=== PATIENT | female | born 1960 | race Caucasian/White ===

== ENCOUNTER 2016-10-22 16:52 | Emergency (ER) | payer MEDICARE, OTHER ==
--- NOTE | 2016-10-22 17:24 | ER Document Report ---
ED Medical Screen (RME) - General Chief Complaint: Shoulder Pain Stated Complaint: RIGHT SHOULDER PAIN Notes: Right shoulder pain 24 hours. I greeted and performed a rapid initial assessment of this patient. Comprehensive ED assessment and evaluation of the patient, analysis of test results and completion of the medical decision making process will be conducted by additional ED providers. TRAVEL OUTSIDE OF THE [place] IN LAST 30 DAYS: No - Related Data Allergies/Adverse Reactions: Tetanus Vaccines and Toxoid [Tetanus] Allergy (Severe, Verified 06/02/15 11:48) Past Medical History - Past Medical History Cardiac Medical History: Reports: Hx Hypertension - MEDICATED Denies: Hx Coronary Artery Disease, Hx Heart Attack Pulmonary Medical History: Reports: Hx Asthma - medicated/no hospitalizations Denies: Hx Bronchitis, Hx COPD, Hx Pneumonia Neurological Medical History: Denies: Hx Cerebrovascular Accident, Hx Seizures Endocrine Medical History: Reports: Hx Diabetes Mellitus Type 2 - DX IN AUG 2006 GI Medical History: Denies: Hx Hepatitis, Hx Hiatal Hernia, Hx Ulcer Musculoskeltal Medical History: Denies Hx Arthritis Psychiatric Medical History: Reports: Hx Depression - DX IN AUG 2006 Infectious Medical History: Denies: Hx Hepatitis Past Surgical History: Reports: Hx Orthopedic Surgery - carpal tunnel bilateral hands. Denies: Hx Adenoidectomy, Hx Hysterectomy, Hx Mastectomy, Hx Open Heart Surgery, Hx Pacemaker - Immunizations Hx Diphtheria, Pertussis, Tetanus Vaccination: No Physical Exam - Vital signs Vitals: Temp Pulse Resp BP Pulse Ox 98.0 F 93 20 156/83 H 95 10/22/16 17:15 10/22/16 17:15 10/22/16 17:15 10/22/16 17:15 10/22/16 17:15 Course - Vital Signs Vital signs: Temp Pulse Resp BP Pulse Ox 98.0 F 93 20 156/83 H 95 10/22/16 17:15 10/22/16 17:15 10/22/16 17:15 10/22/16 17:15 10/22/16 17:15
--- NOTE | 2016-10-22 20:26 | ER Document Report ---
ED General - General Chief Complaint: Shoulder Pain Stated Complaint: RIGHT SHOULDER PAIN Notes: Patient says that she is experiencing pain that started last night in the right lateral chest and up into the right shoulder. At the time it started, patient was sitting and not doing anything strenuous. A she has not been doing anything unusual of late, although she has been working from her home doing a lot of typing since August and her workload has been increasing of late. The worst pain is located in the superior aspect of the posterior shoulder, upper scapular area. She recalls having a similar episode to this about a year ago that lasted for about a week, but it wasn't this painful. It went away with about her seeing anyone for the condition. Patient does not recall any fever. No cough or cold or chest congestion. She does have COPD, having stopped smoking in 1999. She fell 20 years ago fracturing this right shoulder. The injury did not require surgery. Patient has chronic pain and wears a fentanyl 0.25 patch. She relates to me that she has previously been in a coma twice following surgical procedures. One of these episodes lasted 8 weeks and the other one 6 weeks. She says that she was declared brain on one of those occasions. Currently has high cholesterol, high blood pressure, COPD, diabetes, depression, and kidney insufficiency.. Patient denies any specific heart disease. TRAVEL OUTSIDE OF THE [place] IN LAST 30 DAYS: No - Related Data Allergies/Adverse Reactions: Tetanus Vaccines and Toxoid [Tetanus] Allergy (Severe, Verified 06/02/15 11:48) Past Medical History - Social History Smoking Status: Former Smoker Cigarette use (# per day): No Family History: Reviewed & Not Pertinent Patient has suicidal ideation: No Patient has homicidal ideation: No - Past Medical History Cardiac Medical History: Reports: Hx Hypercholesterolemia, Hx Hypertension - MEDICATED Denies: Hx Coronary Artery Disease, Hx Heart Attack Pulmonary Medical History: Reports: Hx Asthma - medicated/no hospitalizations, Hx COPD Endocrine Medical History: Reports: Hx Diabetes Mellitus Type 1, Hx Diabetes Mellitus Type 2 - DX IN AUG 2006 Psychiatric Medical History: Reports: Hx Depression - DX IN AUG 2006 Past Surgical History: Reports: Hx Orthopedic Surgery - carpal tunnel bilateral hands - Immunizations Hx Diphtheria, Pertussis, Tetanus Vaccination: No Review of Systems - Review of Systems Notes: REVIEW OF SYSTEMS: CONSTITUTIONAL : Denies fever. EENT: Denies eye, ear, nose or mouth or throat pain or other symptoms. CARDIOVASCULAR: See history of present illness. RESPIRATORY: Denies cough, chest congestion, or shortness of breath. GASTROINTESTINAL: Denies abdominal pain or nausea, vomiting, or diarrhea. GENITOURINARY: Denies difficulty or painful urinating, urinary frequency, blood in urine. MUSCULOSKELETAL: Denies neck pain. See history of present illness regarding pain in right upper back. Denies joint pain or swelling. SKIN: Denies rash or skin lesions. NEUROLOGICAL: Denies LOC or altered mental status. Denies headache. Denies sensory loss or motor deficits. PSYCHIATRIC: Has a history of depression. ALL OTHER SYSTEMS REVIEWED AND NEGATIVE. Physical Exam - Vital signs Vitals: Temp Pulse Resp BP Pulse Ox 98.0 F 93 20 156/83 H 95 10/22/16 17:15 10/22/16 17:15 10/22/16 17:15 10/22/16 17:15 10/22/16 17:15 Interpretation: Normal - Notes Notes: PHYSICAL EXAMINATION: GENERAL: Well-appearing, in no acute distress. Does not appear to be in significant pain. HEAD: Atraumatic, normocephalic. ENT: oropharynx clear without exudates. Moist mucous membranes. NECK: Normal range of motion, supple. LUNGS: Breath sounds clear and equal bilaterally. Tender to press the right side of the chest wall laterally. Tender to press the upper right back, in the upper portion of the scapula and above. No swelling however. No skin changes. HEART: Regular rate and rhythm without murmurs. ABDOMEN: Soft, nontender. No guarding or rebound. BACK: No tenderness throughout entire back. EXTREMITIES: Normal range of motion without pain. No pain or swelling. Negative Homans. NEUROLOGICAL: Normal speech, normal gait. Normal sensory, motor, and reflex exams. Awake, alert, and oriented x3. Cranial nerves normal. PSYCH: Normal mood, normal affect. SKIN: Warm, dry, no rashes. Course - Vital Signs Vital signs: Temp Pulse Resp BP Pulse Ox 97.8 F 93 20 141/85 H 99 10/22/16 21:04 10/22/16 21:04 10/22/16 21:04 10/22/16 21:04 10/22/16 21:04 - Diagnostic Test Radiology results interpreted by me: 10/22/16 20:27 Chest x-ray and right shoulder x-ray are both negative. - EKG Interpretation by Me EKG shows normal: Sinus rhythm Rate: Normal Rhythm: NSR - At 88 Voltage: Consistant with [facility] Discharge - Discharge Clinical Impression: Muscle spasm of back Right shoulder pain Qualifiers: Chronicity: acute Qualified Code(s): M25.511 - Pain in right shoulder Condition: Stable Disposition: HOME, SELF-CARE Additional Instructions: Muscle Strain right shoulder You have strained a muscle -- torn the fibers within the muscle. This often occurs with strenuous exertion, or during an injury that suddenly stretches the muscle. The seriousness of a strain varies. Some strains heal within days, others cause problems for months. X-rays cannot show a muscle strain. X-rays are taken only if symptoms suggest that a fracture could be present. The usual treatment of a muscle strain is rest and ice packs. Sometimes, a sling, splint, or crutches may be necessary to rest the muscle. The muscle can be used again once pain subsides. Severe strains require a special exercise and stretching program to prevent permanent stiffness and disability. Your doctor will advise you if this will be necessary. Call the doctor immediately if pain or swelling becomes severe, or if numbness or discoloration develop. Your x-rays were all normal. Her EKG also showed no acute changes. Muscle Relaxers Muscle relaxing medications are usually prescribed for acute muscle spasm or injury to the neck and back. They are often combined with antiinflammatory pain medication for increased relief. You may stop the muscle relaxer when the pain and stiffness have improved. Start the medication again if spasms recur. Muscle relaxers may cause drowsiness, especially with the first dose. Do not operate machinery or drive while under the effects of the medication. Most muscle relaxers last up to 24 hours. Do not combine the medication with alcohol. FOLLOW-UP CARE: If you have been referred to a physician for follow-up care, call the physician s office for an appointment as you were instructed or within the next two days. If you experience worsening or a significant change in your symptoms, notify the physician immediately or return to the Emergency Department at any time for re-evaluation. Return if you develop new or worsening symptoms. Prescriptions: Cyclobenzaprine HCl [Flexeril 5 mg Tablet] 5 mg PO TID #15 tablet Referrals: LIA ROQUE MD [Primary Care Provider] - Follow up as needed
[2016-10-22] MEDS ORDERED: CYCLOBENZAPRINE HCL 10 MG TABLET PO ONE (20:54)
[2016-10-22 21:04] VITALS: BP 141/85
--- NOTE | 2016-10-22 22:54 | EKG REPORT ---
SEVERITY:- ABNORMAL ECG - SINUS RHYTHM PROBABLE LEFT ATRIAL ABNORMALITY LEFT VENTRICULAR HYPERTROPHY : Confirmed by: Brianna Tom MD 22-Oct-2016 22:53:36
== END 2016-10-22 21:04 | disposition home or self-care (01) ==
LOC: ER 16:52
DX: M62.830 Muscle spasm of back (principal); M25.511 Pain in right shoulder; R07.89 Other chest pain; G89.29 Other chronic pain; J44.9 Chronic obstructive pulmonary disease, unspecified; E78.00 Pure hypercholesterolemia, unspecified; I10 Essential (primary) hypertension; E11.9 Type 2 diabetes mellitus without complications; Z87.891 Personal history of nicotine dependence; Z23 Encounter for immunization
CPT/HCPCS: 93005; 99283; 71020; 73030; 93010; A9270

== ENCOUNTER → 2016-12-18 | Outpatient (CLI) | payer MEDICARE, OTHER ==
[2016-12-18 14:22] LABS: HEMOGLOBIN 12.4 g/dL (12.0-15.5); HGB HCT DIFFERENCE 0.2; MEAN CORPUSCULAR HGB CONC 33.5 g/dL (32.0-36.0); MEAN CORPUSCULAR VOLUME 86 fl (80-97); RED BLOOD COUNT 4.29 10^6/uL (3.72-5.28); RED CELL DISTRIBUTION WIDTH 13.8 % (11.5-14.0); WHITE BLOOD COUNT 11.5 10^3/uL (4.0-10.5)
[2016-12-18 14:54] LABS: ANION GAP 12 (5-19); BLOOD UREA NITROGEN 30 mg/dL (7-20); CALCIUM 9.4 mg/dL (8.4-10.2); CARBON DIOXIDE 23 mmol/L (22-30); CHLORIDE 107 mmol/L (98-107); CREATININE RESULT 2.32 mg/dL (0.52-1.25); GLUCOSE 166 mg/dL (75-110); POTASSIUM 4.9 mmol/L (3.6-5.0); SODIUM 142.4 mmol/L (137-145)
[2016-12-18 19:03] LABS: APPEARANCE,URINE SLIGHTLY-CLOUDY; BILIRUBIN,URINE NEGATIVE (NEGATIVE); GLUCOSE, URINE NEGATIVE (NEGATIVE); KETONES,URINE NEGATIVE (NEGATIVE); LEUKOCYTE ESTERASE,URINE TRACE (NEGATIVE); NITRITE,URINE NEGATIVE (NEGATIVE); PROTEIN,URINE 30 mg/dL (NEGATIVE); URINE SPECIFIC GRAVITY 1.017; UROBILINOGEN,URINE NEGATIVE mg/dL (<2.0)
[2016-12-20 11:40] LABS: CREATININE URINE 197.1 mg/dL (Not Estab.)
== END ==
LOC: OD 13:28
PROVIDERS: ATTEND Internal Medicine Nephrology
DX: I12.9 Hypertensive chronic kidney disease with stage 1 through stage 4 chronic kidney disease, or unspecified chronic kidney disease (principal); N18.4 Chronic kidney disease, stage 4 (severe); E11.9 Type 2 diabetes mellitus without complications; R80.9 Proteinuria, unspecified
CPT/HCPCS: 36415; 80048; 81001; 82570; 84156; 85027

== ENCOUNTER → 2017-05-01 | Outpatient (CLI) | payer MEDICARE, OTHER ==
[2017-05-01 18:18] LABS: HEMATOCRIT 37.3 % (36.0-47.0); HEMOGLOBIN 12.3 g/dL (12.0-15.5); HGB HCT DIFFERENCE -0.4; MEAN CORPUSCULAR HEMOGLOBIN 29.5 pg (27.0-33.4); MEAN CORPUSCULAR HGB CONC 33.1 g/dL (32.0-36.0); MEAN CORPUSCULAR VOLUME 89 fl (80-97); RED BLOOD COUNT 4.18 10^6/uL (3.72-5.28); RED CELL DISTRIBUTION WIDTH 13.1 % (11.5-14.0)
[2017-05-01 18:31] LABS: ANION GAP 10 (5-19); BLOOD UREA NITROGEN 30 mg/dL (7-20); CARBON DIOXIDE 25 mmol/L (22-30); CHLORIDE 107 mmol/L (98-107); CREATININE RESULT 2.59 mg/dL (0.52-1.25); GLUCOSE 233 mg/dL (75-110); PHOSPHORUS 2.9 mg/dL (2.5-4.5); POTASSIUM 4.9 mmol/L (3.6-5.0); SODIUM 141.9 mmol/L (137-145)
[2017-05-01 18:36] LABS: APPEARANCE,URINE SLIGHTLY-CLOUDY; BILIRUBIN,URINE NEGATIVE (NEGATIVE); GLUCOSE, URINE 50 mg/dL (NEGATIVE); KETONES,URINE NEGATIVE (NEGATIVE); LEUKOCYTE ESTERASE,URINE NEGATIVE (NEGATIVE); NITRITE,URINE NEGATIVE (NEGATIVE); PROTEIN,URINE 30 mg/dL (NEGATIVE); URINE SPECIFIC GRAVITY 1.019; UROBILINOGEN,URINE NEGATIVE mg/dL (<2.0)
[2017-05-01 18:51] LABS: URINE CREATININE 280.5 mg/dL (15-278); URINE PROTEIN 37.7 mg/dL (<12)
== END ==
LOC: OD 16:32
PROVIDERS: ATTEND Internal Medicine Nephrology
DX: E11.22 Type 2 diabetes mellitus with diabetic chronic kidney disease (principal); N18.4 Chronic kidney disease, stage 4 (severe); R80.9 Proteinuria, unspecified; E87.5 Hyperkalemia
CPT/HCPCS: 36415; 80048; 81001; 82570; 83970; 84100; 84156; 85027

== ENCOUNTER → 2017-08-31 | Outpatient (CLI) | payer MEDICARE, OTHER ==
[2017-08-31 11:39] LABS: HEMATOCRIT 36.7 % (36.0-47.0); HEMOGLOBIN 12.3 g/dL (12.0-15.5); HGB HCT DIFFERENCE 0.2; MEAN CORPUSCULAR HEMOGLOBIN 29.2 pg (27.0-33.4); MEAN CORPUSCULAR HGB CONC 33.4 g/dL (32.0-36.0); MEAN CORPUSCULAR VOLUME 88 fl (80-97); RED BLOOD COUNT 4.19 10^6/uL (3.72-5.28); RED CELL DISTRIBUTION WIDTH 13.3 % (11.5-14.0); WHITE BLOOD COUNT 10.2 10^3/uL (4.0-10.5)
[2017-08-31 11:47] LABS: APPEARANCE,URINE CLOUDY; BILIRUBIN,URINE NEGATIVE (NEGATIVE); GLUCOSE, URINE NEGATIVE (NEGATIVE); KETONES,URINE NEGATIVE (NEGATIVE); LEUKOCYTE ESTERASE,URINE SMALL (NEGATIVE); NITRITE,URINE NEGATIVE (NEGATIVE); PROTEIN,URINE 100 mg/dL (NEGATIVE); URINE SPECIFIC GRAVITY 1.025
[2017-08-31 11:56] LABS: ANION GAP 16 (5-19); BLOOD UREA NITROGEN 27 mg/dL (7-20); CALCIUM 9.2 mg/dL (8.4-10.2); CARBON DIOXIDE 20 mmol/L (22-30); CHLORIDE 108 mmol/L (98-107); CREATININE RESULT 2.38 mg/dL (0.52-1.25); GLUCOSE 175 mg/dL (75-110); PHOSPHORUS 3.2 mg/dL (2.5-4.5); POTASSIUM 4.6 mmol/L (3.6-5.0); SODIUM 144.1 mmol/L (137-145)
[2017-09-01 12:51] LABS: URINE CREATININE 89.9 mg/dL (15-278); URINE PROTEIN 20.2 mg/dL (<12)
== END ==
LOC: OD 11:04
PROVIDERS: ATTEND Internal Medicine Nephrology
DX: I12.9 Hypertensive chronic kidney disease with stage 1 through stage 4 chronic kidney disease, or unspecified chronic kidney disease (principal); N18.4 Chronic kidney disease, stage 4 (severe); E11.22 Type 2 diabetes mellitus with diabetic chronic kidney disease; E87.5 Hyperkalemia
CPT/HCPCS: 36415; 80048; 81001; 82570; 83970; 84100; 84156; 85027

== ENCOUNTER → 2018-01-14 | Outpatient (CLI) | payer MEDICARE, OTHER ==
[2018-01-14 17:30] LABS: HEMATOCRIT 37.4 % (36.0-47.0); HEMOGLOBIN 12.4 g/dL (12.0-15.5); MEAN CORPUSCULAR HEMOGLOBIN 29.1 pg (27.0-33.4); MEAN CORPUSCULAR HGB CONC 33.3 g/dL (32.0-36.0); MEAN CORPUSCULAR VOLUME 88 fl (80-97); PLATELET COUNT 197 10^3/uL (150-450); RED BLOOD COUNT 4.27 10^6/uL (3.72-5.28); RED CELL DISTRIBUTION WIDTH 13.5 % (11.5-14.0); WHITE BLOOD COUNT 7.9 10^3/uL (4.0-10.5)
[2018-01-14 17:36] LABS: APPEARANCE,URINE SLIGHTLY-CLOUDY; BILIRUBIN,URINE NEGATIVE (NEGATIVE); COLOR,URINE YELLOW; GLUCOSE, URINE >=500 mg/dL (NEGATIVE); KETONES,URINE NEGATIVE (NEGATIVE); LEUKOCYTE ESTERASE,URINE NEGATIVE (NEGATIVE); NITRITE,URINE NEGATIVE (NEGATIVE); PROTEIN,URINE 30 mg/dL (NEGATIVE); URINE SPECIFIC GRAVITY 1.016
[2018-01-14 18:01] LABS: ANION GAP 12 (5-19); BLOOD UREA NITROGEN 24 mg/dL (7-20); CALCIUM 8.9 mg/dL (8.4-10.2); CARBON DIOXIDE 25 mmol/L (22-30); CHLORIDE 104 mmol/L (98-107); GLUCOSE 244 mg/dL (75-110); PHOSPHORUS 2.9 mg/dL (2.5-4.5); POTASSIUM 4.3 mmol/L (3.6-5.0); SODIUM 141.4 mmol/L (137-145)
== END ==
LOC: OD 16:37
PROVIDERS: ATTEND Internal Medicine Nephrology
DX: I12.9 Hypertensive chronic kidney disease with stage 1 through stage 4 chronic kidney disease, or unspecified chronic kidney disease (principal); N18.4 Chronic kidney disease, stage 4 (severe); E11.9 Type 2 diabetes mellitus without complications; R80.9 Proteinuria, unspecified; D64.9 Anemia, unspecified
CPT/HCPCS: 36415; 80048; 81001; 83970; 84100; 85027

== ENCOUNTER → 2018-07-02 | Outpatient (CLI) | payer MEDICARE, OTHER ==
[2018-07-02 11:20] LABS: HEMATOCRIT 36.4 % (36.0-47.0); HEMOGLOBIN 12.5 g/dL (12.0-15.5); MEAN CORPUSCULAR HGB CONC 34.2 g/dL (32.0-36.0); MEAN CORPUSCULAR VOLUME 88 fl (80-97); RED BLOOD COUNT 4.15 10^6/uL (3.72-5.28); RED CELL DISTRIBUTION WIDTH 12.9 % (11.5-14.0); WHITE BLOOD COUNT 9.8 10^3/uL (4.0-10.5)
[2018-07-02 11:34] LABS: APPEARANCE,URINE HAZY; BILIRUBIN,URINE NEGATIVE (NEGATIVE); COLOR,URINE AMBER; GLUCOSE, URINE 500 mg/dL (NEGATIVE); KETONES,URINE NEGATIVE (NEGATIVE); LEUKOCYTE ESTERASE,URINE NEGATIVE (NEGATIVE); NITRITE,URINE NEGATIVE (NEGATIVE); PROTEIN,URINE 100 mg/dL (NEGATIVE)
[2018-07-02 11:48] LABS: URINE SPECIFIC GRAVITY 1.024
[2018-07-02 11:50] LABS: ANION GAP 12 (5-19); BLOOD UREA NITROGEN 19 mg/dL (7-20); CALCIUM 9.1 mg/dL (8.4-10.2); CARBON DIOXIDE 25 mmol/L (22-30); CHLORIDE 104 mmol/L (98-107); GLUCOSE 291 mg/dL (75-110); PHOSPHORUS 2.7 mg/dL (2.5-4.5); POTASSIUM 4.5 mmol/L (3.6-5.0); SODIUM 140.7 mmol/L (137-145)
[2018-07-02 12:00] LABS: PLATELET COUNT 225 10^3/uL (150-450)
[2018-07-02 12:01] LABS: UR PRO/CREAT RATIO RESULT 0.1 mg/mg (0.0-0.2); URINE CREATININE 314.4 mg/dL (15-278)
== END ==
LOC: OD 10:26
PROVIDERS: ATTEND Internal Medicine Nephrology
DX: I12.9 Hypertensive chronic kidney disease with stage 1 through stage 4 chronic kidney disease, or unspecified chronic kidney disease (principal); E11.22 Type 2 diabetes mellitus with diabetic chronic kidney disease; N18.4 Chronic kidney disease, stage 4 (severe); D64.9 Anemia, unspecified
CPT/HCPCS: 36415; 80048; 81001; 82570; 83970; 84100; 84156; 85027

== ENCOUNTER → 2018-10-18 | Outpatient (CLI) | payer MEDICARE, OTHER ==
[2018-10-18 17:39] LABS: HEMATOCRIT 39.2 % (36.0-47.0); HEMOGLOBIN 13.3 g/dL (12.0-15.5); MEAN CORPUSCULAR HEMOGLOBIN 29.8 pg (27.0-33.4); MEAN CORPUSCULAR HGB CONC 33.8 g/dL (32.0-36.0); MEAN CORPUSCULAR VOLUME 88 fl (80-97); PLATELET COUNT 220 10^3/uL (150-450); RED BLOOD COUNT 4.45 10^6/uL (3.72-5.28); RED CELL DISTRIBUTION WIDTH 12.9 % (11.5-14.0); WHITE BLOOD COUNT 8.5 10^3/uL (4.0-10.5)
[2018-10-18 17:50] LABS: ALANINE AMINOTRANSFERASE 20 U/L (9-52); ALBUMIN 3.9 g/dL (3.5-5.0); ALKALINE PHOSPHATASE 105 U/L (38-126); ANION GAP 8 (5-19); ASPARTATE AMINO TRANSFERASE 18 U/L (14-36); BILIRUBIN,DIRECT 0.3 mg/dL (0.0-0.4); BILIRUBIN,TOTAL 0.4 mg/dL (0.2-1.3); BLOOD UREA NITROGEN 21 mg/dL (7-20); CARBON DIOXIDE 28 mmol/L (22-30); CHLORIDE 103 mmol/L (98-107); GLUCOSE 245 mg/dL (75-110); PHOSPHORUS 2.9 mg/dL (2.5-4.5); POTASSIUM 4.8 mmol/L (3.6-5.0); SODIUM 138.5 mmol/L (137-145)
[2018-10-18 17:52] LABS: APPEARANCE,URINE CLOUDY; BILIRUBIN,URINE NEGATIVE (NEGATIVE); COLOR,URINE YELLOW; GLUCOSE, URINE >=500 mg/dL (NEGATIVE); KETONES,URINE NEGATIVE (NEGATIVE); LEUKOCYTE ESTERASE,URINE MODERATE (NEGATIVE); NITRITE,URINE NEGATIVE (NEGATIVE); PROTEIN,URINE 100 mg/dL (NEGATIVE); URINE SPECIFIC GRAVITY 1.018
== END ==
LOC: OD 16:36
PROVIDERS: ATTEND Internal Medicine Nephrology
DX: I12.9 Hypertensive chronic kidney disease with stage 1 through stage 4 chronic kidney disease, or unspecified chronic kidney disease (principal); N18.4 Chronic kidney disease, stage 4 (severe); E11.22 Type 2 diabetes mellitus with diabetic chronic kidney disease; R80.9 Proteinuria, unspecified; D64.9 Anemia, unspecified
CPT/HCPCS: 36415; 80053; 81001; 83970; 84100; 85027

== ENCOUNTER → 2018-10-25 | Outpatient (CLI) | payer MEDICARE, OTHER | LOC: OD 12:20 | PROVIDERS: ATTEND Internal Medicine Nephrology | DX: R30.0 Dysuria (principal); N18.3 Chronic kidney disease, stage 3 (moderate) ==

== ENCOUNTER → 2019-02-19 | Outpatient (CLI) | payer MEDICARE, OTHER ==
[2019-02-19 14:16] LABS: HEMATOCRIT 37.4 % (36.0-47.0); HEMOGLOBIN 12.6 g/dL (12.0-15.5); MEAN CORPUSCULAR HEMOGLOBIN 29.9 pg (27.0-33.4); MEAN CORPUSCULAR HGB CONC 33.7 g/dL (32.0-36.0); MEAN CORPUSCULAR VOLUME 89 fl (80-97); PLATELET COUNT 236 10^3/uL (150-450); RED BLOOD COUNT 4.22 10^6/uL (3.72-5.28); RED CELL DISTRIBUTION WIDTH 13.4 % (11.5-14.0); WHITE BLOOD COUNT 8.7 10^3/uL (4.0-10.5)
[2019-02-19 14:32] LABS: APPEARANCE,URINE CLEAR; BILIRUBIN,URINE NEGATIVE (NEGATIVE); COLOR,URINE YELLOW; GLUCOSE, URINE 50 mg/dL (NEGATIVE); KETONES,URINE NEGATIVE (NEGATIVE); LEUKOCYTE ESTERASE,URINE NEGATIVE (NEGATIVE); NITRITE,URINE NEGATIVE (NEGATIVE); PROTEIN,URINE NEGATIVE (NEGATIVE); URINE SPECIFIC GRAVITY 1.015; UROBILINOGEN,URINE NEGATIVE mg/dL (<2.0)
[2019-02-19 14:36] LABS: ANION GAP 10 (5-19); BLOOD UREA NITROGEN 37 mg/dL (7-20); CALCIUM 9.5 mg/dL (8.4-10.2); CARBON DIOXIDE 25 mmol/L (22-30); CHLORIDE 107 mmol/L (98-107); GLUCOSE 198 mg/dL (75-110); PHOSPHORUS 3.4 mg/dL (2.5-4.5); POTASSIUM 4.8 mmol/L (3.6-5.0); SODIUM 141.7 mmol/L (137-145)
[2019-02-19 14:58] LABS: UR PRO/CREAT RATIO RESULT 0.1 mg/mg (0.0-0.2); URINE CREATININE 119.2 mg/dL (15-278); URINE PROTEIN 16.6 mg/dL (<12)
== END ==
LOC: OD 13:44
PROVIDERS: ATTEND Internal Medicine Nephrology
DX: I12.0 Hypertensive chronic kidney disease with stage 5 chronic kidney disease or end stage renal disease (principal); N18.5 Chronic kidney disease, stage 5; E87.5 Hyperkalemia; R80.9 Proteinuria, unspecified
CPT/HCPCS: 36415; 80048; 81001; 82570; 83970; 84100; 84156; 85027

== ENCOUNTER → 2019-06-04 | Outpatient (CLI) | payer MEDICARE, OTHER ==
[2019-06-04 13:49] LABS: APPEARANCE,URINE CLEAR; BILIRUBIN,URINE NEGATIVE (NEGATIVE); COLOR,URINE YELLOW; GLUCOSE, URINE >=500 mg/dL (NEGATIVE); HEMOGLOBIN 12.5 g/dL (12.0-15.5); KETONES,URINE NEGATIVE (NEGATIVE); LEUKOCYTE ESTERASE,URINE NEGATIVE (NEGATIVE); MEAN CORPUSCULAR HEMOGLOBIN 29.7 pg (27.0-33.4); MEAN CORPUSCULAR HGB CONC 33.8 g/dL (32.0-36.0); MEAN CORPUSCULAR VOLUME 88 fl (80-97); NITRITE,URINE NEGATIVE (NEGATIVE); PLATELET COUNT 203 10^3/uL (150-450); PROTEIN,URINE 30 mg/dL (NEGATIVE); RED BLOOD COUNT 4.22 10^6/uL (3.72-5.28); RED CELL DISTRIBUTION WIDTH 12.8 % (11.5-14.0); URINE SPECIFIC GRAVITY 1.021; WHITE BLOOD COUNT 8.3 10^3/uL (4.0-10.5)
[2019-06-04 14:08] LABS: ANION GAP 13 (5-19); BLOOD UREA NITROGEN 29 mg/dL (7-20); CARBON DIOXIDE 21 mmol/L (22-30); CHLORIDE 103 mmol/L (98-107); GLUCOSE 366 mg/dL (75-110); POTASSIUM 4.8 mmol/L (3.6-5.0)
== END ==
LOC: OD 13:15
PROVIDERS: ATTEND Internal Medicine Nephrology
DX: I12.9 Hypertensive chronic kidney disease with stage 1 through stage 4 chronic kidney disease, or unspecified chronic kidney disease (principal); N18.4 Chronic kidney disease, stage 4 (severe); E11.22 Type 2 diabetes mellitus with diabetic chronic kidney disease; D64.9 Anemia, unspecified
CPT/HCPCS: 36415; 80048; 81001; 83735; 83970; 84100; 85027

== ENCOUNTER → 2019-11-13 | Outpatient (CLI) | payer MEDICARE, OTHER ==
[2019-11-13 13:02] LABS: ABSOLUTE BASOPHILS # (AUTO) 0.1 10^3/uL (0.0-0.2); ABSOLUTE EOSINOPHILS # (AUTO) 0.2 10^3/uL (0.0-0.6); ABSOLUTE LYMPHOCYTES (AUTO) 2.4 10^3/uL (0.5-4.7); ABSOLUTE MONOCYTES (AUTO) 0.6 10^3/uL (0.1-1.4); ABSOLUTE NEUT (AUTO) 4.6 10^3/uL (1.7-8.2); BASOPHILS % (AUTO) 0.9 % (0-2); EOSINOPHILS % (AUTO) 3.1 % (0-6); HEMATOCRIT 36.7 % (36.0-47.0); HEMOGLOBIN 12.3 g/dL (12.0-15.5); LYMPHOCYTES % (AUTO) 30.3 % (13-45); MEAN CORPUSCULAR HEMOGLOBIN 29.6 pg (27.0-33.4); MEAN CORPUSCULAR HGB CONC 33.4 g/dL (32.0-36.0); MEAN CORPUSCULAR VOLUME 89 fl (80-97); MONOCYTES % (AUTO) 7.3 % (3-13); PLATELET COUNT 217 10^3/uL (150-450); RED BLOOD COUNT 4.14 10^6/uL (3.72-5.28); RED CELL DISTRIBUTION WIDTH 13.8 % (11.5-14.0); SEGMENTED NEUTROPHILS % (AUTO) 58.4 % (42-78); TOTAL CELLS COUNTED % (AUTO) 100 %; WHITE BLOOD COUNT 7.9 10^3/uL (4.0-10.5)
[2019-11-13 13:25] LABS: ANION GAP 7 (5-19); BLOOD UREA NITROGEN 25 mg/dL (7-20); CALCIUM 8.9 mg/dL (8.4-10.2); CARBON DIOXIDE 28 mmol/L (22-30); CHLORIDE 105 mmol/L (98-107); GLUCOSE 243 mg/dL (75-110); PHOSPHORUS 2.9 mg/dL (2.5-4.5); POTASSIUM 4.6 mmol/L (3.6-5.0)
[2019-11-13 13:56] LABS: APPEARANCE,URINE SLIGHTLY-CLOUDY; BILIRUBIN,URINE NEGATIVE (NEGATIVE); COLOR,URINE YELLOW; GLUCOSE, URINE >=500 mg/dL (NEGATIVE); KETONES,URINE NEGATIVE (NEGATIVE); LEUKOCYTE ESTERASE,URINE MODERATE (NEGATIVE); NITRITE,URINE NEGATIVE (NEGATIVE); PROTEIN,URINE 100 mg/dL (NEGATIVE); URINE SPECIFIC GRAVITY 1.015; UROBILINOGEN,URINE NEGATIVE mg/dL (<2.0)
[2019-11-13 14:08] LABS: UR PRO/CREAT RATIO RESULT 0.5 mg/mg (0.0-0.2); URINE PROTEIN 80.3 mg/dL (<12)
== END ==
LOC: OD 12:40
PROVIDERS: ATTEND Internal Medicine Nephrology
DX: N39.0 Urinary tract infection, site not specified (principal); E11.22 Type 2 diabetes mellitus with diabetic chronic kidney disease; I12.9 Hypertensive chronic kidney disease with stage 1 through stage 4 chronic kidney disease, or unspecified chronic kidney disease; N18.4 Chronic kidney disease, stage 4 (severe); N25.0 Renal osteodystrophy; R80.9 Proteinuria, unspecified
CPT/HCPCS: 36415; 80048; 81001; 82570; 83735; 83970; 84100; 84156; 85025; 87086; 87088; 87186

== ENCOUNTER → 2020-03-11 | Outpatient (CLI) | payer MEDICARE, OTHER ==
[2020-03-11 15:15] LABS: ABSOLUTE BASOPHILS # (AUTO) 0.1 10^3/uL (0.0-0.2); ABSOLUTE EOSINOPHILS # (AUTO) 0.2 10^3/uL (0.0-0.6); ABSOLUTE LYMPHOCYTES (AUTO) 2.5 10^3/uL (0.5-4.7); ABSOLUTE MONOCYTES (AUTO) 0.6 10^3/uL (0.1-1.4); ABSOLUTE NEUT (AUTO) 5.5 10^3/uL (1.7-8.2); BASOPHILS % (AUTO) 1.2 % (0-2); EOSINOPHILS % (AUTO) 2.2 % (0-6); HEMATOCRIT 38.7 % (36.0-47.0); HEMOGLOBIN 13.3 g/dL (12.0-15.5); LYMPHOCYTES % (AUTO) 27.9 % (13-45); MEAN CORPUSCULAR HEMOGLOBIN 30.5 pg (27.0-33.4); MEAN CORPUSCULAR HGB CONC 34.3 g/dL (32.0-36.0); MEAN CORPUSCULAR VOLUME 89 fl (80-97); MONOCYTES % (AUTO) 6.9 % (3-13); PLATELET COUNT 240 10^3/uL (150-450); RED BLOOD COUNT 4.37 10^6/uL (3.72-5.28); RED CELL DISTRIBUTION WIDTH 13.1 % (11.5-14.0); SEGMENTED NEUTROPHILS % (AUTO) 61.8 % (42-78); TOTAL CELLS COUNTED % (AUTO) 100 %
[2020-03-11 15:31] LABS: ANION GAP 7 (5-19); BLOOD UREA NITROGEN 26 mg/dL (7-20); CALCIUM 9.6 mg/dL (8.4-10.2); CARBON DIOXIDE 26 mmol/L (22-30); CHLORIDE 103 mmol/L (98-107); GLUCOSE 275 mg/dL (75-110); PHOSPHORUS 2.9 mg/dL (2.5-4.5); POTASSIUM 4.5 mmol/L (3.6-5.0)
[2020-03-11 15:33] LABS: APPEARANCE,URINE CLOUDY; BILIRUBIN,URINE NEGATIVE (NEGATIVE); COLOR,URINE YELLOW; GLUCOSE, URINE >=500 mg/dL (NEGATIVE); KETONES,URINE NEGATIVE (NEGATIVE); LEUKOCYTE ESTERASE,URINE TRACE (NEGATIVE); NITRITE,URINE NEGATIVE (NEGATIVE); PROTEIN,URINE 100 mg/dL (NEGATIVE); URINE SPECIFIC GRAVITY 1.018; UROBILINOGEN,URINE NEGATIVE mg/dL (<2.0)
[2020-03-11 15:53] LABS: URINE PROTEIN 122.4 mg/dL (<12)
[2020-03-11 16:00] LABS: UR PRO/CREAT RATIO RESULT 0.4 mg/mg (0.0-0.2); URINE CREATININE 332.1 mg/dL (15-278)
== END ==
LOC: OD 14:35
PROVIDERS: ATTEND Internal Medicine Nephrology
DX: I12.9 Hypertensive chronic kidney disease with stage 1 through stage 4 chronic kidney disease, or unspecified chronic kidney disease (principal); N18.4 Chronic kidney disease, stage 4 (severe); E11.22 Type 2 diabetes mellitus with diabetic chronic kidney disease; D64.9 Anemia, unspecified; E87.5 Hyperkalemia; N39.0 Urinary tract infection, site not specified
CPT/HCPCS: 36415; 80048; 81001; 82570; 83970; 84100; 84156; 85025; 87086